=== PATIENT | male | born 1945 | race Caucasian/White ===

== ENCOUNTER 2017-09-01 17:52 | Inpatient (IN) ==
[2017-09-01 22:12] LABS: Troponin I Only < 0.015 NG/ML (0.00-0.045)
[2017-09-01 22:12] LABS: Albumin 2.9 G/DL (3.4-5.0); Bilirubin,Total 0.4 MG/DL (0.2-1.0); Calcium 8.5 MG/DL (8.5-10.1); Magnesium 1.8 MG/DL (1.8-2.4); Osmolality,Calculated 290.8 MOS/KG (273-304); Potassium 5.7 MMOL/L (3.5-5.1); Total Protein 7.2 G/DL (6.4-8.3)
[2017-09-02 00:14] LABS: Basophils # 0.1 10*3/uL (0.0-0.2); Basophils % 0.6 % (0.0-0.8); Eosinophils # 0.3 10*3/uL (0.0-0.87); Eosinophils % 4.2 % (0.00-10.9); Hematocrit 31.3 VOL% (42.0-52.0); Hemoglobin 10.5 GM/DL (14.0-18.0); Immature Granulocytes % 0.3 %; Immature Granulocytes Absolute 0.02 #; Lymphocytes # 2.2 10*3/uL (1.4-4.0); Lymphocytes % 27.6 % (21.2-54.2); Mean Corpuscular HGB Conc 33.5 GM/DL (32-36); Mean Corpuscular Hemoglobin 26 PG (27-34); Mean Corpuscular Volume 77.9 FL (87-102); Mean Platelet Volume 12.5 FL (9.6-12.0); Monocytes # 0.6 10*3/uL (0.11-0.8); Monocytes % 7.3 % (1.7-12.7); Neutrophils # 4.7 10*3/uL (1.4-7.4); Platelet Count 180 T/CUMM (130-400); Red Blood Count 4.02 MC/CUMM (3.8-5.5); Red Cell Distribution Width 16.5 % (9.3-17.3); White Blood Count 7.8 T/CUMM (4-12)
[2017-09-02] MEDS ORDERED: FUROSEMIDE 40 MG TABLET PO SCH (09:00)
[2017-09-02] MEDS ORDERED: amLODIPine 10 MG TABLET PO SCH (09:00)
[2017-09-02] MEDS ORDERED: LISINOPRIL 20 MG TABLET PO SCH ×2 (09:00→16:19)
[2017-09-02] MEDS: INSULIN GLARGINE 100 UNIT/ML SUBCUT SCH (09:22)
[2017-09-02] MEDS: ASPIRIN EC 81 MG TABLET PO SCH (09:23)
[2017-09-02] MEDS: glipiZIDE 10 MG TABLET PO SCH ×2 (09:23→21:40)
[2017-09-02] MEDS: CHOLECALCIFEROL 1,000 UNIT TABLET PO SCH (09:23)
[2017-09-02] MEDS: OMEGA 3 ACID ETHYL ESTERS 1 GM CAPSULE PO SCH ×2 (09:23→21:40)
[2017-09-02] MEDS: CYANOCOBALAMIN 500 MCG TABLET PO SCH (09:23)
[2017-09-02] MEDS: ALLOPURINOL 300 MG TABLET PO SCH (09:24)
[2017-09-02] MEDS: CARVEDILOL 25 MG TABLET PO SCH ×2 (09:24→21:40)
[2017-09-02] MEDS: INSULIN LISPRO 100 UNIT/ML SUBCUT SCH ×3 (11:32→21:44)
[2017-09-02] MEDS ORDERED: amLODIPine 5 MG TABLET PO SCH (16:18)
[2017-09-02] MEDS ORDERED: hydrALAZINE 20 MG/1 ML VIAL IV PRN (16:20)
[2017-09-02] MEDS ORDERED: LISINOPRIL 10 MG TABLET PO SCH (16:47)
[2017-09-02] MEDS: hydrALAZINE 25 MG TABLET PO SCH (21:39)
[2017-09-02] MEDS: FUROSEMIDE 40 MG TABLET PO SCH (21:40)
[2017-09-03] MEDS: ASPIRIN EC 81 MG TABLET PO SCH (08:59)
[2017-09-03] MEDS: ALLOPURINOL 300 MG TABLET PO SCH (08:59)
[2017-09-03] MEDS: CHOLECALCIFEROL 1,000 UNIT TABLET PO SCH (08:59)
[2017-09-03] MEDS: OMEGA 3 ACID ETHYL ESTERS 1 GM CAPSULE PO SCH (08:59)
[2017-09-03] MEDS: CYANOCOBALAMIN 500 MCG TABLET PO SCH (08:59)
[2017-09-03] MEDS: glipiZIDE 10 MG TABLET PO SCH (08:59)
[2017-09-03] MEDS: CARVEDILOL 25 MG TABLET PO SCH (08:59)
[2017-09-03] MEDS: FUROSEMIDE 40 MG TABLET PO SCH (09:00)
[2017-09-03] MEDS: hydrALAZINE 25 MG TABLET PO SCH ×2 (09:00→16:07)
[2017-09-03] MEDS: INSULIN GLARGINE 100 UNIT/ML SUBCUT SCH (09:55)
[2017-09-03 10:14] LABS: Calcium 8.5 MG/DL (8.5-10.1); Magnesium 1.8 MG/DL (1.8-2.4); Osmolality,Calculated 282.4 MOS/KG (273-304); Potassium 4.8 MMOL/L (3.5-5.1)
[2017-09-03] MEDS ORDERED: COLCHICINE 0.6 MG TABLET PO ONE (11:46)
[2017-09-03] MEDS ORDERED: INDOMETHACIN 50 MG CAPSULE PO ONE (11:46)
[2017-09-03] MEDS: INSULIN LISPRO 100 UNIT/ML SUBCUT SCH (16:08)
[2017-09-03 17:55] VITALS: BP 156/68
== END 2017-09-03 17:30 | disposition home or self-care (01) | DRG 291 ==
LOC: N.TELES 18:32
PROVIDERS: ADMIT Family Medicine; ATTEND Family Medicine

== ENCOUNTER 2018-11-02 19:26 | Observation (INO) ==
[2018-11-02 20:31] LABS: Basophils # 0.1 10*3/uL (0.0-0.2); Basophils % 0.7 % (0.0-0.8); Eosinophils # 0.3 10*3/uL (0.0-0.87); Eosinophils % 3.3 % (0.00-10.9); Hematocrit 42.2 VOL% (42.0-52.0); Hemoglobin 13.6 GM/DL (14.0-18.0); Immature Granulocytes % 0.6 %; Immature Granulocytes Absolute 0.05 #; Lymphocytes # 2.4 10*3/uL (1.4-4.0); Lymphocytes % 30.1 % (21.2-54.2); Mean Corpuscular HGB Conc 32.2 GM/DL (32-36); Mean Corpuscular Hemoglobin 27 PG (27-34); Mean Corpuscular Volume 84.9 FL (87-102); Monocytes # 0.6 10*3/uL (0.11-0.8); Monocytes % 6.8 % (1.7-12.7); Neutrophils # 4.7 10*3/uL (1.4-7.4); Neutrophils % 58.5 % (38.7-73.9); Platelet Count 195 T/CUMM (130-400); Red Blood Count 4.97 MC/CUMM (3.8-5.5); Red Cell Distribution Width 14.5 % (9.3-17.3); White Blood Count 8.1 T/CUMM (4-12)
[2018-11-02 20:43] LABS: Alanine Aminotransferase 33 U/L (16-61); Albumin 3.1 G/DL (3.4-5.0); Alkaline Phosphatase 138 U/L (45-117); Aspartate Amino Transferase 22 U/L (0-37); Bilirubin,Total < 0.39 MG/DL (0.2-1.0); Blood Urea Nitrogen 28 MG/DL (7-18); Calcium 8.7 MG/DL (8.5-10.1); Glucose 264 MG/DL (74-106); Osmolality,Calculated 287.8 MOS/KG (273-304); Sodium 137 MMOL/L (136-145)
[2018-11-02] MEDS ORDERED: KETOROLAC 30 MG/1 ML VIAL IV STA (21:10)
[2018-11-02] MEDS ORDERED: HALOPERIDOL 5 MG/ML AMP IM STA (21:26)
[2018-11-02] MEDS ORDERED: LORazepam 2 MG/1 ML VIAL IM STA (21:26)
[2018-11-02] MEDS ORDERED: METOCLOPRAMIDE 10 MG/2 ML VIAL IV STA (22:05)
[2018-11-02] MEDS ORDERED: LORazepam 2 MG/1 ML VIAL IV STA (22:05)
[2018-11-02] MEDS ORDERED: GLUCAGON 1 MG VIAL IM PRN (23:51)
[2018-11-02] MEDS ORDERED: DEXTROSE 50% 25 GM/50 ML SYRINGE IV PRN (23:51)
[2018-11-02] MEDS ORDERED: DOCUSATE SODIUM 100 MG CAPSULE PO PRN (23:51)
[2018-11-02] MEDS ORDERED: SUMAtriptan 6 MG/0.5 ML VIAL SUBCUT PRN (23:59)
[2018-11-03 02:50] LABS: Barbiturates Screen,Urine Negative (Negative); Benzodiazepines Screen,Urine Negative (Negative); Cannabinoid Screen,Urine Negative (Negative); Opiate Screen,Urine Negative (Negative); Phencyclidine Screen,Urine Negative (Negative)
[2018-11-03 04:49] LABS: Apearance,Urine CLEAR (Clear); Bacteria,Urine Occasional /HPF (Few); Bilirubin,Urine Negative (Negative); Blood, Urine Negative (Negative); Glucose,Urine (UA) 150 mg/dL (Negative); Hyaline Casts,Urine 1 /LPF (0-3); Ketones,Urine Negative (Negative); Mucus,Urine Occasional /LPF (Occasional); Nitrite,Urine Negative (Negative); Protein,Urine >=500 MG/DL; RBC,Urine 1 /HPF (0-4); Squamous Epithelial Cell,Urine Occasional /HPF (0-10); Urine Color Straw (Yellow); Urine Specific Gravity 1.012 (1.001-1.035); Urine Urobilinogen < 2.0 EU/DL (0.2-1.0); WBC,Urine <1 /HPF (0-6)
[2018-11-03 05:01] LABS: Basophils % 0.5 % (0.0-0.8); Eosinophils # 0.2 10*3/uL (0.0-0.87); Eosinophils % 2.4 % (0.00-10.9); Hematocrit 36.4 VOL% (42.0-52.0); Hemoglobin 11.8 GM/DL (14.0-18.0); Immature Granulocytes % 0.4 %; Immature Granulocytes Absolute 0.03 #; Lymphocytes # 2.1 10*3/uL (1.4-4.0); Lymphocytes % 28.1 % (21.2-54.2); Mean Corpuscular HGB Conc 32.4 GM/DL (32-36); Mean Corpuscular Hemoglobin 27 PG (27-34); Mean Corpuscular Volume 83.9 FL (87-102); Monocytes # 0.6 10*3/uL (0.11-0.8); Monocytes % 7.9 % (1.7-12.7); Neutrophils # 4.6 10*3/uL (1.4-7.4); Neutrophils % 60.7 % (38.7-73.9); Platelet Count 160 T/CUMM (130-400); Red Blood Count 4.34 MC/CUMM (3.8-5.5); Red Cell Distribution Width 14.1 % (9.3-17.3); White Blood Count 7.6 T/CUMM (4-12)
[2018-11-03 05:14] LABS: Risk Ratio 6.7; VLDL CHOLESTEROL 48.2 MG/DL
[2018-11-03 05:21] LABS: Calcium 8.2 MG/DL (8.5-10.1); Osmolality,Calculated 284.8 MOS/KG (273-304); Potassium 4.8 MMOL/L (3.5-5.1)
[2018-11-03] MEDS: ASPIRIN EC 81 MG TABLET PO SCH (09:08)
[2018-11-03] MEDS: INSULIN LISPRO 100 UNIT/ML SUBCUT SCH ×4 (09:09→22:26)
[2018-11-03] MEDS: ENOXAPARIN 30 MG/0.3 ML SYRINGE SUBCUT SCH (09:09)
[2018-11-03] MEDS: ONDANSETRON 4 MG/2 ML VIAL IV PRN (14:41)
[2018-11-03] MEDS: ACETAMINOPHEN 325 MG TABLET PO PRN (14:44)
[2018-11-03] MEDS ORDERED: ASPIRIN EC 81 MG TABLET PO SCH (15:00)
[2018-11-03] MEDS: LOSARTAN 50 MG TABLET PO SCH (15:55)
[2018-11-03] MEDS: amLODIPine 10 MG TABLET PO SCH (15:55)
[2018-11-03] MEDS: CARVEDILOL 25 MG TABLET PO SCH ×2 (15:55→20:28)
[2018-11-03] MEDS: LISINOPRIL 20 MG TABLET PO SCH (15:55)
[2018-11-03] MEDS: SUMAtriptan 6 MG/0.5 ML VIAL SUBCUT PRN (17:27)
[2018-11-03] MEDS ORDERED: cloNIDine 0.1 MG TABLET PO ONE (17:42)
[2018-11-03] MEDS: glipiZIDE 10 MG TABLET PO SCH (20:28)
[2018-11-03] MEDS: MAGNESIUM OXIDE 400 MG TABLET PO SCH (20:28)
[2018-11-03] MEDS: OMEGA 3 ACID ETHYL ESTERS 1 GM CAPSULE PO SCH (20:28)
[2018-11-04] MEDS: SUMAtriptan 6 MG/0.5 ML VIAL SUBCUT PRN (04:16)
[2018-11-04 04:44] LABS: Basophils # 0.1 10*3/uL (0.0-0.2); Basophils % 0.6 % (0.0-0.8); Eosinophils # 0.2 10*3/uL (0.0-0.87); Eosinophils % 2.6 % (0.00-10.9); Hematocrit 37.2 VOL% (42.0-52.0); Hemoglobin 11.7 GM/DL (14.0-18.0); Immature Granulocytes % 0.5 %; Immature Granulocytes Absolute 0.04 #; Lymphocytes # 2.6 10*3/uL (1.4-4.0); Lymphocytes % 31.7 % (21.2-54.2); Mean Corpuscular HGB Conc 31.5 GM/DL (32-36); Mean Corpuscular Hemoglobin 27 PG (27-34); Mean Corpuscular Volume 85.3 FL (87-102); Mean Platelet Volume 12.3 FL (9.6-12.0); Monocytes # 0.7 10*3/uL (0.11-0.8); Monocytes % 8.5 % (1.7-12.7); Neutrophils # 4.6 10*3/uL (1.4-7.4); Neutrophils % 56.1 % (38.7-73.9); Platelet Count 187 T/CUMM (130-400); Red Blood Count 4.36 MC/CUMM (3.8-5.5); White Blood Count 8.1 T/CUMM (4-12)
[2018-11-04 05:27] LABS: Calcium 8.4 MG/DL (8.5-10.1); Osmolality,Calculated 282.1 MOS/KG (273-304); Potassium 5.1 MMOL/L (3.5-5.1)
[2018-11-04] MEDS: ACETAMINOPHEN 325 MG TABLET PO PRN (06:25)
[2018-11-04] MEDS: ONDANSETRON 4 MG/2 ML VIAL IV PRN (06:31)
[2018-11-04] MEDS: LISINOPRIL 20 MG TABLET PO SCH (08:47)
[2018-11-04] MEDS: ENOXAPARIN 30 MG/0.3 ML SYRINGE SUBCUT SCH (08:47)
[2018-11-04] MEDS: CARVEDILOL 25 MG TABLET PO SCH (08:48)
[2018-11-04] MEDS: OMEGA 3 ACID ETHYL ESTERS 1 GM CAPSULE PO SCH (08:48)
[2018-11-04] MEDS: MAGNESIUM OXIDE 400 MG TABLET PO SCH (08:48)
[2018-11-04] MEDS: amLODIPine 10 MG TABLET PO SCH (08:48)
[2018-11-04] MEDS: ASPIRIN EC 81 MG TABLET PO SCH (08:48)
[2018-11-04] MEDS: glipiZIDE 10 MG TABLET PO SCH (08:49)
[2018-11-04] MEDS: LOSARTAN 50 MG TABLET PO SCH (08:49)
[2018-11-04] MEDS: INSULIN LISPRO 100 UNIT/ML SUBCUT SCH ×2 (08:59→12:29)
[2018-11-04] MEDS ORDERED: CYANOCOBALAMIN 500 MCG TABLET PO SCH (09:00)
[2018-11-04] MEDS ORDERED: CHLORTHALIDONE 25 MG TABLET PO SCH (09:00)
[2018-11-04] MEDS ORDERED: sitaGLIPtin 25 MG TABLET PO SCH (09:00)
[2018-11-04] MEDS ORDERED: FUROSEMIDE 40 MG TABLET PO SCH (09:00)
[2018-11-04] MEDS ORDERED: COLCHICINE 0.6 MG CAPSULE PO SCH (09:00)
[2018-11-04] MEDS ORDERED: CHOLECALCIFEROL 1,000 UNIT TABLET PO SCH (09:00)
[2018-11-04] MEDS ORDERED: ALLOPURINOL 300 MG TABLET PO SCH (09:00)
[2018-11-04] MEDS ORDERED: INSULIN GLARGINE 100 UNIT/ML SUBCUT SCH (09:00)
[2018-11-04] MEDS ORDERED: CLOPIDOGREL 75 MG TABLET PO SCH (10:30)
[2018-11-04 12:21] VITALS: BP 151/71
== END 2018-11-04 12:50 | disposition home or self-care (01) ==
LOC: N.EDINP 19:26 → N.ED 19:26 → N.4E 11-03 01:07
PROVIDERS: ADMIT Internal Medicine; ATTEND Internal Medicine

== ENCOUNTER 2019-01-29 23:41 | Observation (INO) ==
[2019-01-30] MEDS ORDERED: ASPIRIN 325 MG TABLET PO STA (00:08)
[2019-01-30 00:12] LABS: Basophils # 0.1 10*3/uL (0.0-0.2); Basophils % 0.7 % (0.0-0.8); Eosinophils # 0.2 10*3/uL (0.0-0.87); Eosinophils % 2.2 % (0.00-10.9); Hematocrit 36.9 VOL% (42.0-52.0); Hemoglobin 11.7 GM/DL (14.0-18.0); Immature Granulocytes % 0.6 %; Immature Granulocytes Absolute 0.04 #; Lymphocytes # 1.8 10*3/uL (1.4-4.0); Mean Corpuscular HGB Conc 31.7 GM/DL (32-36); Mean Corpuscular Hemoglobin 27 PG (27-34); Mean Corpuscular Volume 85.8 FL (87-102); Mean Platelet Volume 11.7 FL (9.6-12.0); Monocytes # 0.6 10*3/uL (0.11-0.8); Neutrophils # 4.5 10*3/uL (1.4-7.4); Neutrophils % 63.5 % (38.7-73.9); Platelet Count 178 T/CUMM (130-400); Red Cell Distribution Width 13.8 % (9.3-17.3); White Blood Count 7.1 T/CUMM (4-12)
[2019-01-30 00:18] LABS: INR 0.9; PT Patient Result 9.6 SECS
[2019-01-30 00:33] LABS: Alanine Aminotransferase 30 U/L (16-61); Albumin 2.8 G/DL (3.4-5.0); Alkaline Phosphatase 159 U/L (45-117); Aspartate Amino Transferase 21 U/L (0-37); Bilirubin,Total < 0.39 MG/DL (0.2-1.0); Blood Urea Nitrogen 23 MG/DL (7-18); Calcium 7.8 MG/DL (8.5-10.1); Glucose 297 MG/DL (74-106); Osmolality,Calculated 289.7 MOS/KG (273-304); Sodium 138 MMOL/L (136-145); Total Protein 7.5 G/DL (6.4-8.3); Troponin I < 0.015 NG/ML (0.00-0.045)
[2019-01-30] MEDS ORDERED: ONDANSETRON 4 MG/2 ML VIAL IV ONE (00:40)
[2019-01-30] MEDS ORDERED: MORPHINE 4 MG/1 ML VIAL IV ONE (00:40)
[2019-01-30] MEDS ORDERED: NITROGLYCERIN 2% OINT 1 INCH/GM PACK TOP STA (00:44)
[2019-01-30] MEDS ORDERED: INSULIN REGULAR 100 UNIT/ML SUBCUT ONE (01:21)
[2019-01-30] MEDS ORDERED: ENOXAPARIN 40 MG/0.4 ML SYRINGE SUBCUT SCH (01:30)
[2019-01-30] MEDS: NITROGLYCERIN 2% OINT 1 INCH/GM PACK TOP SCH ×2 (07:00→12:44)
[2019-01-30] MEDS ORDERED: LISINOPRIL 20 MG TABLET PO SCH (09:00)
[2019-01-30] MEDS ORDERED: FUROSEMIDE 40 MG TABLET PO SCH (09:00)
[2019-01-30] MEDS ORDERED: CHOLECALCIFEROL 1,000 UNIT TABLET PO SCH (09:00)
[2019-01-30] MEDS ORDERED: glipiZIDE 10 MG TABLET PO SCH (09:00)
[2019-01-30] MEDS ORDERED: CYANOCOBALAMIN 500 MCG TABLET PO SCH (09:00)
[2019-01-30] MEDS ORDERED: MAGNESIUM OXIDE 400 MG TABLET PO SCH (09:00)
[2019-01-30] MEDS ORDERED: sitaGLIPtin 100 MG TABLET PO SCH (09:00)
[2019-01-30] MEDS ORDERED: ALLOPURINOL 300 MG TABLET PO SCH (09:00)
[2019-01-30] MEDS ORDERED: ASPIRIN EC 81 MG TABLET PO SCH ×2 (09:00)
[2019-01-30] MEDS ORDERED: CARVEDILOL 25 MG TABLET PO SCH (09:00)
[2019-01-30] MEDS ORDERED: ATORVASTATIN 40 MG TABLET PO SCH (09:00)
[2019-01-30] MEDS ORDERED: CHLORTHALIDONE 25 MG TABLET PO SCH (09:00)
[2019-01-30] MEDS ORDERED: amLODIPine 10 MG TABLET PO SCH (09:00)
[2019-01-30] MEDS ORDERED: COLCHICINE 0.6 MG CAPSULE PO SCH (09:00)
[2019-01-30] MEDS ORDERED: DOXAZOSIN 1 MG TABLET PO SCH (09:00)
[2019-01-30] MEDS ORDERED: CLOPIDOGREL 75 MG TABLET PO SCH (09:00)
[2019-01-30] MEDS ORDERED: INSULIN GLARGINE 100 UNIT/ML SUBCUT SCH (09:00)
[2019-01-30] MEDS: INSULIN REGULAR 100 UNIT/ML SUBCUT SCH ×3 (09:38→16:21)
[2019-01-30 17:25] VITALS: BP 130/74
[2019-01-30] MEDS ORDERED: CARVEDILOL 12.5 MG TABLET PO SCH (21:00)
== END 2019-01-30 17:36 | disposition home or self-care (01) ==
LOC: N.EDINP 23:41 → N.ED 23:41 → N.TELEN 01-30 01:59
PROVIDERS: ADMIT Internal Medicine; ATTEND Internal Medicine